=== PATIENT | male | born 2000 | race Hispanic/Latino ===

== ENCOUNTER 2021-03-22 11:33 | Emergency (ER) | payer OTHER, SELFPAY | END 2021-03-22 15:20 | disposition home or self-care (01) | LOC: CSHERS 11:33 | DX: S00.33XA Contusion of nose, initial encounter (principal); F17.210 Nicotine dependence, cigarettes, uncomplicated; W07.XXXA Fall from chair, initial encounter | CPT/HCPCS: 70450 ==

== ENCOUNTER 2023-10-03 15:04 | Emergency (ER) | payer SELFPAY ==
[2023-10-03 17:35] LABS: #Basophils 0.01 10x3/uL (0.0-0.2); #Eosinphils 0.01 10x3/uL (0.0-0.5); #Neutrophils 4.69 10x3/uL (1.5-8.4); %Basophils 0.2 % (0.0-2.0); %Eosinophils 0.2 % (0.0-6.0); %Lymphocytes 11.5 % (18.0-47.0); %Monocytes 6.9 % (0.0-10.0); %Neutrophils 80.5 % (40.0-75.0); Hematocrit 47.7 % (38.8-50.0); Hemoglobin 17.3 g/dL (13.5-17.5); Mean Corpuscular HGB CONC 36.3 g/dL (32.0-36.0); Mean Corpuscular Hemoglobin 32.3 pg (27.0-33.0); Mean Platelet Volume 11.9 fl (7.4-10.4); Platelet Count 182 10x3/uL (150-450); Red Blood Cell (RBC) Count 5.36 10x6/uL (4.32-5.72); White Blood Cell (WBC) Count 5.8 10x3/uL (3.5-10.5)
[2023-10-03 17:50] LABS: ALT (SGPT) 79 U/L (8-55); AST (SGOT) 33 U/L (5-34); Albumin 4.7 g/dL (3.5-5.0); Alkaline Phosphatase 61 U/L (40-110); Anion Gap 13 mmol/L (10-20); BUN (Urea Nitrogen) 11 mg/dL (8.9-20.6); Bilirubin, Total 0.8 mg/dL (0.2-1.2); Calc. Creatinine Clearance 0 mL/min (70-130); Calcium 9.6 mg/dL (7.8-10.44); Carbon Dioxide 23 mmol/L (22-29); Chloride 108 mmol/L (98-107); Estimated GFR 124; Globulin 3.7 g/dL (2.4-3.5); Glucose 90 mg/dL (70-105); Lipase 16 U/L (8-78); Protein, Total 8.4 g/dL (6.0-8.3); Sodium 140 mmol/L (136-145)
== END 2023-10-03 18:26 | disposition home or self-care (01) ==
LOC: CSHERS 15:04
DX: K52.9 Noninfective gastroenteritis and colitis, unspecified (principal)
CPT/HCPCS: 36415; 80053; 83690; 83735; 85025; 96360

== ENCOUNTER 2024-05-24 10:21 | Emergency (ER) | payer SELFPAY ==
[2024-05-24] MEDS ORDERED: Famotidine 20 MG TAB ONE (11:33)
[2024-05-24] MEDS ORDERED: Mag-Al 1200 mg/1200 mg/30 ML UDCUP ONE (11:33)
[2024-05-24] MEDS ORDERED: Acetaminophen 500 MG TAB ONE (11:33)
== END 2024-05-24 12:30 | disposition home or self-care (01) ==
LOC: CSHERS 10:21
DX: R10.13 Epigastric pain (principal); K21.9 Gastro-esophageal reflux disease without esophagitis; F17.210 Nicotine dependence, cigarettes, uncomplicated; Z55.0 Illiteracy and low-level literacy
CPT/HCPCS: 99283